=== PATIENT | male | born 1990 | race Caucasian/White ===

== ENCOUNTER 2019-11-30 17:28 | Emergency (ER) | payer OTHER ==
[~2019-11-30] VITALS: Ht 172.7 cm; Wt 86.4 kg
[2019-11-30 17:38] VITALS: Ht 172.7 cm; Wt 86.4 kg
[2019-11-30] MEDS ORDERED: INSULIN PUMP (17:40)
[2019-11-30] MEDS ORDERED: POLYSPORIN OINT15 G1 TOPICAL (18:27)
[2019-11-30 18:40] VITALS: BP 148/90
== END 2019-11-30 18:41 | disposition home or self-care (01) ==
LOC: D.ER 17:28
DX: S80.812A Abrasion, left lower leg, initial encounter (principal); M79.662 Pain in left lower leg; W20.8XXA Other cause of strike by thrown, projected or falling object, initial encounter; Y93.9 Activity, unspecified; Y92.9 Unspecified place or not applicable; E11.9 Type 2 diabetes mellitus without complications; Z79.4 Long term (current) use of insulin; Z96.41 Presence of insulin pump (external) (internal)

== ENCOUNTER → 2019-12-11 15:30 | Outpatient (CLI) | payer OTHER ==
[2019-11-30 17:38] VITALS: BMI 28.9
[~2019-12-11 15:30] MED LIST: INSULIN PUMP; POLYSPORIN OINT15 G1 TOPICAL
== END | disposition home or self-care (01) ==
LOC: D.LABREF 15:30
PROVIDERS: ATTEND Family Medicine
DX: S81.809A Unspecified open wound, unspecified lower leg, initial encounter (principal)